=== PATIENT | female | born 1950 | race Caucasian/White ===

== ENCOUNTER → 2016-08-25 | Day surgery (SDC) | payer OTHER, MEDICARE ==
[~2016-08-25] VITALS: Ht 162.6 cm; Wt 59.0 kg
[~2016-08-25] MED LIST: AMITRIPTYLINE H25 M2 PO; AMLODIPINE BESYL5 M1 PO; ASPIRIN EC81 M1 PO; CLONAZEPAM1 M2 PO; EFFEXOR XR150 M1 PO
--- NOTE | 2016-08-25 16:10 | Operative Report ---
Operative/Inv Procedure Report Surgery Date: 08/25/16 Name of Procedure: Left knee arthroscopy, partial medial and lateral meniscectomy Pre-Operative Diagnosis: Left medial meniscus tear, chronic ACL tear Post-Operative Diagnosis: Left medial and lateral meniscus tear, chronic ACL tear Estimated Blood Loss: scant Surgeon/Floor Layer Tile: NEVILLE LINO MD Anesthesia: laryngeal mask airway, block Complications: None Condition: Stable to PACU Operative Indication: This is a 65-year-old female with a history of a left knee chronic ACL tear. She developed recurrent knee locking. MRI showed a complex tear of the medial meniscus. Risks and benefits of the procedure were discussed with the patient at length. Risks include but are not limited to nerve damage, muscle damage, infection, blood loss, blood clots, pulmonary embolus, and even . The patient agreed to the above risks and elected to proceed with surgery. Operative/Procedure Note Note: The patient was placed supine on the operating room table. A tourniquet was applied. The lower extremity prepped and draped in normal sterile fashion. A timeout was performed before the incision. The site marking was visualized before incision. After the leg was prepped and draped, an Esmarch was used to exsanguinate the extremity. The tourniquet was inflated. A standard inferolateral portal was established with an 11 blade. The camera was inserted. A medial portal was established with a spinal needle and an 11 blade. The diagnostic arthroscopy was then performed which showed the above findings. A combination of a biter and shaver used to debride the tear of the medial meniscus. The meniscal tissue was significantly unstable and friable. A significant portion of the posterior horn and body of the meniscus were removed. The biter was then brought into the lateral portal and further debridement was performed of the body of the meniscus. The lateral meniscus was then debrided with a straight biter as well as a shaver back to a stable rim of cartilage. The knee was copiously irrigated. The portal sites were closed with 3-0 nylon suture in a simple interrupted fashion. A dry sterile dressing was applied and the patient was transferred to PACU in stable condition. Findings: Unstable bucket-handle tear of the medial meniscus extending from the posterior horn to the body. PCL intact. Chronic ACL tear. Radial tear of the body of the lateral meniscus. Lateral compartment articular cartilage with grade 1 chondral softening. Medial compartment articular cartilage with grade 1 chondral softening. Grade 1 chondral softening of the patellofemoral joint articular cartilage. No loose bodies noted.
== END ==
LOC: STS 04:33
DX: M23.232 Derangement of other medial meniscus due to old tear or injury, left knee (principal); M23.262 Derangement of other lateral meniscus due to old tear or injury, left knee; M23.52 Chronic instability of knee, left knee; I10 Essential (primary) hypertension
CPT/HCPCS: C9399; J0690; J2250